=== PATIENT | male | born 1960 | race Caucasian/White ===

== ENCOUNTER → 2019-08-08 | Outpatient (CLI) | payer OTHER ==
[~2019-08-08] MED LIST: CONTRAST GIVEN. MC PRN; IOHEXOL 240 MG/ML 50ML VIAL. PO ONE; IOHEXOL 300 MG/ML 100ML VIAL. IV ONE
--- NOTE | 2019-08-08 16:02 | KCIC ---
CT study of the abdomen and pelvis with contrast Clinical indications: Abdominal pain. Left lower quadrant pain for 2 weeks. History of diverticulitis. TECHNIQUE: After IV infusion wire cc Omnipaque 300, helical CT scanning of abdomen and pelvis was performed. GI contrast was administered per mouth. PQRS compliance Statement One or more of the following individualized dose reduction techniques were utilized for this study: 1. Automated exposure control 2. Adjustment of the mA and/or kV according to patient size 3. Use of iterative reconstruction technique COMPARISON: None available. FINDINGS: The liver and spleen and pancreas are normal. The gallbladder is normal and no extra hepatic biliary ductal dilatation is seen. No adrenal mass is evident. Both kidneys are normal without hydronephrosis or hydroureter. Urinary bladder is not abnormally distended. No focal aneurysmal dilatation of the abdominal aorta is seen. No enlarged abdominal or pelvic lymphadenopathy is evident. 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 There may be a collateral branch from the SMA. This is an anatomical variant. No enlarged abdominal or pelvic lymphadenopathy is evident. There is moderate wall thickening with moderate pericolonic inflammatory change of the proximal sigmoid colon. Diverticula are seen. This is consistent with sigmoid diverticulitis. No abscess or free air or free fluid is seen. No obstructive bowel pattern is evident. The appendix and terminal ileum are normal. Mild bilateral peripheral interstitial lung disease is evident with mild honeycombing. This consistent with mild pulmonary fibrosis. There are 2 new lung nodules within the lateral aspect of the lateral segment of the right middle lobe with the more superior one measuring 4 mm and the more inferior one measuring 5 mm seen on images 1 and 5 and series 2 respectively. Sclerosis is seen around the right SI joint due to degenerative osteoarthritis. No lytic process is seen. IMPRESSION: Moderate sigmoid diverticulitis. No abscess or bowel obstruction or free air. Mild pulmonary fibrosis of the lung bases. 2 lung nodules. Recommend follow-up chest CT in 12 months as per Fleischner guidelines. Electronically signed by: Yaya Constantino MD (08/08/2019 3:59 PM) [place] [id number]
== END | disposition home or self-care (01) ==
LOC: KCIC CT 13:45
PROVIDERS: ATTEND Family Medicine
DX: K57.32 Diverticulitis of large intestine without perforation or abscess without bleeding (principal); J84.9 Interstitial pulmonary disease, unspecified; J84.10 Pulmonary fibrosis, unspecified; R91.8 Other nonspecific abnormal finding of lung field; F17.200 Nicotine dependence, unspecified, uncomplicated
CPT/HCPCS: 74177; Q9966; Q9967

== ENCOUNTER → 2020-12-16 | Outpatient (CLI) | payer OTHER ==
--- NOTE | 2020-12-16 10:47 | RAD ---
MR#: [id number] Date of Study: 12/16/2020 Ordering Physician: TYSON LOPEZ, Referring Physician: TYSON LOPEZ, Tech: Yanni Bond, NANMS, RVT, RTR APPROVED REPORT Patient Location: OUT-PATIENT Laterality:Bilateral Indications Bruit Doppler Spectral Velocity Analysis Right Left pCCA 104/19 cm/spCCA 122/29 cm/s mCCA 100/19 cm/smCCA 104/26 cm/s dCCA 76/18 cm/sdCCA 63/14 cm/s Bulb 53/18 cm/sBulb 69/18 cm/s ECA 98/15 cm/sECA 42/17 cm/s pICA 65/18 cm/spICA 38/10 cm/s Mic 59/18 cm/smICA 61/24 cm/s dICA 81/18 cm/sdICA 76/26 cm/s Vert. 35/11 cm/sVert. 47/10 cm/s ICA/CCA 0.81ICA/CCA 0.73 Findings Grayscale images of the bilateral carotid vasculature demonstrates mild diffuse intimal hyperplasia w ith minimal plaque. Internal carotid arteries: Spectral waveforms and velocities are within normal limits. Overall 0 to less than 50% stenosis External carotid arteries: Spectral waveforms and velocities are within normal limits. Overall 0 to less than 50% stenosis. Vertebral arteries: Antegrade flow with normal velocities. Normal ICA to CCA ratios. Critical Notification Critical Value: No <Conclusion> 1. No significant carotid occlusive disease bilaterally. Signed by : Tyson Lopez, Electronically Approved : 12/16/2020 10:47:13
--- NOTE | 2020-12-16 11:13 | CARD ---
MR#: [id number] Date of Study: 12/16/2020 Ordering Physician: LUIS LOPEZ, Referring Physician: LUIS LOPEZ, Tech: Lesia Elizondo [facility] APPROVED REPORT EXAM: Two-dimensional and M-mode echocardiogram with Doppler and color Doppler. Other Information Quality : AverageHR: 74bpm Rhythm : NSR INDICATION RISK FACTORS Obesity Hyperlipidemia 2D DIMENSIONS RVDd3.4 (2.9-3.5cm)Left Atrium(2D)3.6 (1.6-4.0cm) IVSd1.1 (0.7-1.1cm)Aortic Root(2D)3.3 (2.0-3.7cm) LVDd5.2 (3.9-5.9cm)LVOT Diameter2.3 (1.8-2.4cm) PWd1.0 (0.7-1.1cm)LVDs3.5 (2.5-4.0cm) FS (%) 32.0 %SV77.0 ml LVEF(%)59.8 (>50%) Aortic Valve AoV Peak Dwight.307.7cm/sAoV VTI69.3cm AO Peak GR.37.9mmHgLVOT Peak Dwight.93.9cm/s AO Mean GR.22mmHgAVA (VMAX)1.32cm2 AI P 1/2 [id number] Mitral Valve MV E Xyhezfhm62.7cm/sMV DECEL [id number] MV A Zjwfhsfq50.3cm/sE/A Ratio0.5 Tricuspid Valve TR P. Rthfojno188bu/sTR Peak Gr.22mmHg Pulmonary Vein S1 Oqdhfssi73.6cm/sD2 Gvaetbns11.7cm/s PVa [id number] LEFT VENTRICLE The left ventricle is normal size. There is borderline concentric left ventricular hypertrophy. The l eft ventricular systolic function is normal and the ejection fraction is within normal range. Estimat ed ejection fraction 60-65%. There is normal LV segmental wall motion. Transmitral Doppler flow patte rn is Grade I-abnormal relaxation pattern. RIGHT VENTRICLE The right ventricle is normal size. There is normal right ventricular wall thickness. The right ventr icular systolic function is normal. ATRIA The left atrium size is normal. The right atrium size is normal. The interatrial septum is intact wit h no evidence for an atrial septal defect or patent foramen ovale as noted on 2-D or Doppler imaging. AORTIC VALVE The aortic valve is calcified and displays decreased opening. Doppler and Color Flow revealed mild ao rtic regurgitation. There is moderate valvular aortic stenosis. MITRAL VALVE The mitral valve is normal in structure and function. There is no evidence of mitral valve prolapse. There is no mitral valve stenosis. Doppler and Color-flow revealed trace to mild mitral regurgitation . TRICUSPID VALVE The tricuspid valve is normal in structure and function. Doppler and Color Flow revealed trace tricus pid regurgitation. Estimated PAP 25 mmHg. There is no tricuspid valve stenosis. PULMONIC VALVE Doppler and Color Flow revealed mild pulmonic valvular regurgitation. There is no pulmonic valvular s tenosis. GREAT VESSELS The aortic root is normal in size. The ascending aorta is normal in size. The IVC is normal in size a nd collapses >50% with inspiration. PERICARDIAL EFFUSION There is no evidence of significant pericardial effusion. Critical Notification Critical Value: No <Conclusion> The left ventricular systolic function is normal and the ejection fraction is within normal range. E stimated ejection fraction 60-65%. There is normal LV segmental wall motion. The aortic valve is calcified and displays decreased opening. Doppler and Color Flow revealed mild ao rtic regurgitation. MG 19 mm Hg Signed by : Luis Lopez, Electronically Approved : 12/16/2020 11:12:29
== END ==
LOC: US 08:48
PROVIDERS: ATTEND Internal Medicine Cardiovascular Disease
DX: I08.8 Other rheumatic multiple valve diseases (principal); R09.89 Other specified symptoms and signs involving the circulatory and respiratory systems
CPT/HCPCS: 93306; 93880